=== PATIENT | female | born 2000 | race Caucasian/White ===

== ENCOUNTER 2020-11-16 23:04 | Emergency (ER) | payer BC ==
[2020-11-16 23:22] VITALS: O2SAT 99
--- NOTE | 2020-11-16 23:23 | ERPHSYRPT ---
- History of Present Illness Time Seen by Provider: 11/16/20 23:23 Source: patient, family Exam Limitations: no limitations Physician History: This is a 19-year-old white female who is a patient of Dr. Nuno as well as a patient of and presents with a 2-hour history of sudden onset of shakiness and generalized body aches. Patient is 28 to 29 weeks . this has happened in the past. She did not recall what the diagnosis was at that time. Patient has not had nausea vomiting or diarrhea. She has no chest pain. She is not short of breath. She has had no vaginal bleeding. She has had no vaginal discharge. She has no abdominal pain. Timing/Duration: today Severity: mild Associated Symptoms: No nausea, No vomiting, No abdominal pain, No chest pain, No fever Allergies/Adverse Reactions: Penicillins Allergy (Intermediate, Verified 11/16/20 23:25) Hives Sulfa (Sulfonamide Antibiotics) Allergy (Intermediate, Verified 11/16/20 23:25) Hives Travel Risk - International Travel Have you traveled outside of the country in past 3 weeks: No - Coronavirus Screening Are you exhibiting any of the following symptoms?: No Close contact with a COVID-19 positive Pt in past 14-21 Days: No - Review of Systems Constitutional: No Symptoms Eyes: No Symptoms Ears, Nose, & Throat: No Symptoms Respiratory: No Symptoms Cardiac: No Symptoms Abdominal/Gastrointestinal: No Symptoms Genitourinary Symptoms: No Symptoms Musculoskeletal: No Symptoms Skin: No Symptoms Neurological: No Symptoms Psychological: No Symptoms Endocrine: No Symptoms Hematologic/Lymphatic: No Symptoms Immunological/Allergic: No Symptoms All Other Systems: Reviewed and Negative - Past Medical History Pertinent Past Medical History: Yes - Past Surgical History Past Surgical History: Yes - Nursing Vital Signs Nursing Vital Signs: Initial Vital Signs Temperature 98.7 F 11/16/20 23:19 Pulse Rate 94 H 11/16/20 23:19 Respiratory Rate 18 11/16/20 23:19 Blood Pressure 155/103 11/16/20 23:19 O2 Sat by Pulse Oximetry 99 11/16/20 23:19 Pain Scale Pain Intensity 0 - Physical Exam General Appearance: no apparent distress, alert, anxiety Eye Exam: PERRL/EOMI, eyes nml inspection Ears, Nose, Throat Exam: normal ENT inspection, moist mucous membranes Neck Exam: normal inspection, non-tender, supple, full range of motion Respiratory Exam: normal breath sounds, lungs clear, airway intact, No chest tenderness, No respiratory distress Cardiovascular Exam: regular rate/rhythm, normal heart sounds, normal peripheral pulses Gastrointestinal/Abdomen Exam: soft, normal bowel sounds, No tenderness Pelvic Exam: not done Rectal Exam: not done Back Exam: normal inspection, normal range of motion, No CVA tenderness, No vertebral tenderness Extremity Exam: normal inspection Neurologic Exam: alert, oriented x 3, cooperative, escalator service mechanic II-XII nml as tested, normal mood/affect, nml cerebellar function, nml station & gait, sensation nml Skin Exam: normal color, warm, dry Lymphatic Exam: No adenopathy SpO2 Interpretation: normal SpO2: 99 O2 Delivery: Room Air - Course Nursing assessment & vital signs reviewed: Yes Ordered Tests: Active Orders 24 hr Category Date Time Status IV Insertion STAT Care 11/16/20 23:43 Active AMYLASE Stat Lab 11/16/20 23:43 Completed CBC W DIFF Stat Lab 11/16/20 23:43 Completed CMP Stat Lab 11/16/20 23:43 Completed LIPASE Stat Lab 11/16/20 23:43 Completed Lactic Acid Stat Lab 11/16/20 23:43 Completed UA W/RFX UR CULTURE Stat Lab 11/16/20 23:43 Completed Medication Summary Discontinued Medications Generic Name Dose Route Start Last Admin Trade Name Milesq PRN Reason Stop Dose Admin Cephalexin HCl 500 mg 11/17/20 00:41 Keflex 500 Mg PO 11/17/20 00:42 STAT ONE Sodium Chloride 1,000 mls @ 999 mls/hr 11/16/20 23:43 11/17/20 00:19 Sodium Chloride 0.9% 1000 Ml IV 11/17/20 00:43 999 mls/hr .Q1H1M STA Administration Sodium Chloride Confirm 11/17/20 00:16 Sodium Chloride 0.9% 1000 Ml Administered 11/17/20 00:17 Dose 1,000 mls @ ud .ROUTE .STK-MED ONE Potassium Chloride 10 meq 11/17/20 00:25 Klor Con 10 Meq PO 11/17/20 00:26 STAT ONE Lab/Rad Data: Laboratory Result Diagrams 11/16/20 23:43 11/16/20 23:43 Laboratory Results 11/16/20 11/16/20 11/16/20 Range/Units 23:43 23:43 23:43 WBC 12.0 H (4.0-10.5) K/mm3 RBC 3.70 L (4.1-5.4) M/mm3 Hgb 8.7 L (12.0-16.0) gm/dl Hct 28.4 L (35-47) % MCV 76.8 L (78-100) fl MCH 23.5 L (26-32) pg MCHC 30.6 L (32-36) g/dl RDW 14.4 H (11.5-14.0) % Plt Count 193 (150-450) K/mm3 MPV 12.4 H (7.5-11.0) fl Gran % 75.6 H (36.0-66.0) % Eos # (Auto) 0.11 (0-0.5) Absolute Lymphs (auto) 1.69 (1.0-4.6) Absolute Monos (auto) 1.10 (0.0-1.3) Lymphocytes % 14.1 L (24.0-44.0) % Monocytes % 9.2 (0.0-12.0) % Eosinophils % 0.9 (0.00-5.0) % Basophils % 0.2 (0.0-0.4) % Absolute Granulocytes 9.09 H (1.4-6.9) Basophils # 0.02 (0-0.4) Sodium 137 (137-145) mmol/L Potassium 3.2 L (3.5-5.1) mmol/L Chloride 107 (98-107) mmol/L Carbon Dioxide 20 L (22-30) mmol/L Anion Gap 12.9 (5-15) MEQ/L BUN 2 L (7-17) mg/dL Creatinine 0.41 L (0.52-1.04) mg/dL Estimated GFR > 60.0 ML/MIN Glucose 120 H (74-106) mg/dL Lactic Acid 1.6 (0.4-2.0) Calcium 9.3 (8.4-10.2) mg/dL Total Bilirubin 0.10 L (0.2-1.3) mg/dL AST 20 (14-36) U/L ALT 10 (0-35) U/L Alkaline Phosphatase 55 (38-126) U/L Serum Total Protein 6.9 (6.3-8.2) g/dL Albumin 3.7 (3.5-5.0) g/dL Amylase 130 H (30-110) U/L Lipase 100 (23-300) U/L Urine Color (YELLOW) Urine Appearance (CLEAR) Urine pH (5-6) Ur Specific Garber (1.005-1.025) Urine Protein (Negative) Urine Ketones (NEGATIVE) Urine Blood (0-5) Junior/ul Urine Nitrite (NEGATIVE) Urine Bilirubin (NEGATIVE) Urine Urobilinogen (0-1) mg/dL Ur Leukocyte Esterase (NEGATIVE) Urine WBC (Auto) (0-5) /HPF Urine RBC (Auto) (0-2) /HPF U Epithel Cells (Auto) (FEW) /HPF Urine Bacteria (Auto) (NEGATIVE) /HPF Urine Culture Reflexed (NO) Urine Glucose (NEGATIVE) mg/dL 11/16/20 Range/Units 23:43 WBC (4.0-10.5) K/mm3 RBC (4.1-5.4) M/mm3 Hgb (12.0-16.0) gm/dl Hct (35-47) % MCV (78-100) fl MCH (26-32) pg MCHC (32-36) g/dl RDW (11.5-14.0) % Plt Count (150-450) K/mm3 MPV (7.5-11.0) fl Gran % (36.0-66.0) % Eos # (Auto) (0-0.5) Absolute Lymphs (auto) (1.0-4.6) Absolute Monos (auto) (0.0-1.3) Lymphocytes % (24.0-44.0) % Monocytes % (0.0-12.0) % Eosinophils % (0.00-5.0) % Basophils % (0.0-0.4) % Absolute Granulocytes (1.4-6.9) Basophils # (0-0.4) Sodium (137-145) mmol/L Potassium (3.5-5.1) mmol/L Chloride (98-107) mmol/L Carbon Dioxide (22-30) mmol/L Anion Gap (5-15) MEQ/L BUN (7-17) mg/dL Creatinine (0.52-1.04) mg/dL Estimated GFR ML/MIN Glucose (74-106) mg/dL Lactic Acid (0.4-2.0) Calcium (8.4-10.2) mg/dL Total Bilirubin (0.2-1.3) mg/dL AST (14-36) U/L ALT (0-35) U/L Alkaline Phosphatase (38-126) U/L Serum Total Protein (6.3-8.2) g/dL Albumin (3.5-5.0) g/dL Amylase (30-110) U/L Lipase (23-300) U/L Urine Color STRAW (YELLOW) Urine Appearance CLEAR (CLEAR) Urine pH 8.0 (5-6) Ur Specific Garber 1.003 (1.005-1.025) Urine Protein NEGATIVE (Negative) Urine Ketones NEGATIVE (NEGATIVE) Urine Blood NEGATIVE (0-5) Junior/ul Urine Nitrite NEGATIVE (NEGATIVE) Urine Bilirubin NEGATIVE (NEGATIVE) Urine Urobilinogen NEGATIVE (0-1) mg/dL Ur Leukocyte Esterase TRACE (NEGATIVE) Urine WBC (Auto) 3-5 (0-5) /HPF Urine RBC (Auto) NONE (0-2) /HPF U Epithel Cells (Auto) RARE (FEW) /HPF Urine Bacteria (Auto) FEW (NEGATIVE) /HPF Urine Culture Reflexed NO (NO) Urine Glucose NEGATIVE (NEGATIVE) mg/dL - Progress Progress: improved, re-examined Progress Note: 11/17/20 00:42 Patient and patient's mother stated that this patient has had Keflex in the past without any issues. Counseled pt/family regarding: lab results, diagnosis, need for follow-up - Departure Departure Disposition: Home Clinical Impression: Hypokalemia, Anemia, UTI (urinary tract infection) Condition: Stable Critical Care Time: No Referrals: SITA NUNO MD [Primary Care Provider] - Additional Instructions: Drink plenty of fluids. Take your antibiotic medication as prescribed. Follow- up with Dr. James in his office to obtain further instructions on treatment of your anemia. Prescriptions: Cephalexin Mh 500 mg [Keflex 500 mg] 500 mg PO TID #21 capsule
[2020-11-16] MEDS ORDERED: Sodium Chloride 0.9% 1000 ML 1,000 ML IV STA (23:43)
[2020-11-16 23:57] LABS: Absolute Neutrophil Ct (ANC) 9.09 (1.4-6.9); BASOPHIL % 0.2 % (0.0-0.4); Basophil (Absolute #) 0.02 (0-0.4); Eosinophil % 0.9 % (0.00-5.0); Eosinophil (Absolute #) 0.11 (0-0.5); Hematocrit 28.4 % (35-47); Hemoglobin 8.7 gm/dl (12.0-16.0); Lymphocyte (Absolute #) 1.69 (1.0-4.6); Lymphocytes % 14.1 % (24.0-44.0); Mean Cell Volume 76.8 fl (78-100); Mean Corpuscular Hemoglobin 23.5 pg (26-32); Mean Corpuscular Hgb Concent. 30.6 g/dl (32-36); Mean Platelet Volume 12.4 fl (7.5-11.0); Monocytes % 9.2 % (0.0-12.0); Neutrophil % 75.6 % (36.0-66.0); Platelet Count 193 K/mm3 (150-450); Red Cell Distribution Width 14.4 % (11.5-14.0)
[2020-11-17] LABS: Appearance CLEAR (CLEAR); Bacteria FEW /HPF (NEGATIVE); Bilirubin NEGATIVE (NEGATIVE); Blood NEGATIVE Ery/ul (0-5); Epithelial Cells RARE /HPF (FEW); Glucose NEGATIVE (NEGATIVE); Ketones NEGATIVE (NEGATIVE); Leukocyte Esterase TRACE (NEGATIVE); Nitrite NEGATIVE (NEGATIVE); Protein,Urine Dip NEGATIVE (Negative); Specific Gravity 1.003 (1.005-1.025); Urobilinogen NEGATIVE mg/dL (0-1)
[2020-11-17 00:11] LABS: ALBUMIN 3.7 g/dL (3.5-5.0); ALKALINE PHOSPHATASE 55 U/L (38-126); AMYLASE 130 U/L (30-110); ANION GAP 12.9 MEQ/L (5-15); CHLORIDE 107 mmol/L (98-107); Calcium 9.3 mg/dL (8.4-10.2); Carbon Dioxide 20 mmol/L (22-30); Creatinine 1 0.41 mg/dL (0.52-1.04); EST GLOMERULAR FILTRATION RATE > 60.0 ML/MIN; Glucose 120 mg/dL (74-106); LIPASE 100 U/L (23-300); Potassium 3.2 mmol/L (3.5-5.1); SGOT/AST 20 U/L (14-36); SGPT/ALT 10 U/L (0-35); SODIUM 137 mmol/L (137-145); Total Protein 6.9 g/dL (6.3-8.2)
[2020-11-17 00:12] LABS: BLOOD UREA NITROGEN 2 mg/dL (7-17)
[2020-11-17] MEDS ORDERED: Sodium Chloride 0.9% 1000 ML 1,000 ML ONE (00:16)
[2020-11-17] MEDS ORDERED: Klor Con 10 MEQ PO ONE ×2 (00:25→01:14)
[2020-11-17] MEDS ORDERED: KEFLEX 500 MG PO ONE (00:41)
[2020-11-17] MEDS ORDERED: KEFLEX 500 MG ONE (01:14)
[2020-11-17 01:31] VITALS: BP 140/90; PULSE 95
== END 2020-11-17 01:35 | disposition home or self-care (01) ==
LOC: ED 23:04
DX: O23.43 Unspecified infection of urinary tract in pregnancy, third trimester (principal); O99.013 Anemia complicating pregnancy, third trimester; Z3A.28 28 weeks gestation of pregnancy; E87.6 Hypokalemia
CPT/HCPCS: 36000; 36415; 80053; 81001; 82150; 83605; 83690; 85025; 96360; 99284; A9270-GY

== ENCOUNTER 2020-12-23 14:44 | Observation (INO) | payer BC ==
[2020-12-23 15:09] VITALS: BP 131/71; PULSE 97
[2020-12-23 15:38] LABS: Amphetamine,Urine NEGATIVE (NEGATIVE); Barbiturate,Urine NEGATIVE (NEGATIVE); Benzodiazepine,Urine NEGATIVE (NEGATIVE); Cocaine,Urine NEGATIVE (NEGATIVE); Methadone,Urine NEGATIVE (NEGATIVE); Opiate,Urine NEGATIVE (NEGATIVE); PCP,Urine NEGATIVE (NEGATIVE); THC,Urine NEGATIVE (NEGATIVE)
[2020-12-23 15:55] LABS: Appearance CLOUDY (CLEAR); Bacteria MANY /HPF (NEGATIVE); Bilirubin NEGATIVE (NEGATIVE); Blood NEGATIVE Ery/ul (0-5); Epithelial Cells MODERATE /HPF (FEW); Glucose NEGATIVE (NEGATIVE); Ketones TRACE (NEGATIVE); Leukocyte Esterase LARGE (NEGATIVE); Mucus SLIGHT /HPF (NEGATIVE); Nitrite NEGATIVE (NEGATIVE); Protein,Urine Dip 30 (Negative); Urobilinogen NEGATIVE mg/dL (0-1); WBC 26-50 /HPF (0-5)
== END 2020-12-23 16:50 | disposition home or self-care (01) ==
LOC: OB 14:44
PROVIDERS: ADMIT Obstetrics & Gynecology; ATTEND Obstetrics & Gynecology
DX: Z34.83 Encounter for supervision of other normal pregnancy, third trimester (principal); Z3A.34 34 weeks gestation of pregnancy
CPT/HCPCS: 80307; 81001; 84112; 87086; G0378

== ENCOUNTER 2021-01-02 08:42 | Observation (INO) | payer BC ==
[2021-01-02 09:57] VITALS: BP 122/71; PULSE 88
== END 2021-01-02 10:50 | disposition home or self-care (01) ==
LOC: WHC 08:42 → OB 09:19
PROVIDERS: ADMIT Obstetrics & Gynecology; ATTEND Obstetrics & Gynecology
DX: O36.5930 Maternal care for other known or suspected poor fetal growth, third trimester, not applicable or unspecified (principal); O23.43 Unspecified infection of urinary tract in pregnancy, third trimester; Z3A.35 35 weeks gestation of pregnancy
CPT/HCPCS: 59025; 59426; 87086; G0378

== ENCOUNTER 2021-01-07 09:47 | Observation (INO) | payer BC ==
[2021-01-07 10:30] VITALS: BP 131/82; PULSE 114
--- NOTE | 2021-01-07 10:34 | XRAY ---
Indication: growth. 2-dimensional OB ultrasound performed. Comparison: December 05, 2020. Again there is a single viable intrauterine in cephalic presentation. heart rate 161 BPM. anatomy previously documented. Visualized stomach and bladder are unremarkable. Again anterior placenta without abruption/previa. BPD measures 9.09 cm corresponding to 36 weeks 6 days. HC measures 31.82 cm corresponding to 35 weeks 6 days. AC measures 30.38 cm corresponding to 34 weeks 2 days. FL measures 7.02 cm corresponding to 36 weeks 0 day. Estimated weight 5 lbs. 12 oz., +/-14 ounces. Approximately 22 percentile. CELIO is 13.8 cm. Impression: Again single viable intrauterine with mean gestational age 35 weeks 5 days. Normal progression of . No new/acute findings.
== END 2021-01-07 10:50 | disposition home or self-care (01) ==
LOC: RAD 09:47 → OB 10:16 → UNDOADMOB 10:16 → UNDODISOB 10:50
PROVIDERS: ADMIT Obstetrics & Gynecology; ATTEND Obstetrics & Gynecology
DX: O36.5930 Maternal care for other known or suspected poor fetal growth, third trimester, not applicable or unspecified (principal); Z3A.36 36 weeks gestation of pregnancy
CPT/HCPCS: 59025; 76816; G0378

== ENCOUNTER 2021-01-17 08:25 | Observation (INO) | payer BC ==
[2021-01-17 08:51] VITALS: BP 137/87; PULSE 100; O2SAT 100
== END 2021-01-17 09:25 | disposition home or self-care (01) ==
LOC: OB 08:25
PROVIDERS: ADMIT Obstetrics & Gynecology; ATTEND Obstetrics & Gynecology
DX: Z34.83 Encounter for supervision of other normal pregnancy, third trimester (principal); Z3A.37 37 weeks gestation of pregnancy
CPT/HCPCS: 59025; G0378

== ENCOUNTER 2021-01-22 04:55 | Inpatient (IN) | payer BC ==
[2021-01-22] MEDS ORDERED: Lactated Ringers 1,000 ML IV ONE ×2 (06:00→06:15)
[2021-01-22] MEDS ORDERED: TYLENOL EXTRA STRENGTH 500 MG PO PRN (06:00)
[2021-01-22] MEDS ORDERED: Zofran 4 MG/2 ML VIAL IV PRN (06:00)
[2021-01-22 06:05] LABS: Hematocrit 35.4 % (35-47); Hemoglobin 11.4 gm/dl (12.0-16.0); Mean Cell Volume 83.1 fl (78-100); Mean Corpuscular Hemoglobin 26.8 pg (26-32); Mean Corpuscular Hgb Concent. 32.2 g/dl (32-36); Mean Platelet Volume 12.7 fl (7.5-11.0); Platelet Count 198 K/mm3 (150-450); Red Blood Count 4.26 M/mm3 (4.1-5.4); Red Cell Distribution Width 18.2 % (11.5-14.0); White Blood Count 11.9 K/mm3 (4.0-10.5)
[2021-01-22] MEDS ORDERED: OB EPIDURAL NAROPIN/SUFENTANIL IN NACL EPIDURAL PRN (06:11)
[2021-01-22 06:12] LABS: Appearance SLIGHTLY CLOUDY (CLEAR); Bacteria MANY /HPF (NEGATIVE); Bilirubin NEGATIVE (NEGATIVE); Blood LARGE Ery/ul (0-5); Epithelial Cells MODERATE /HPF (FEW); Glucose NEGATIVE (NEGATIVE); Ketones NEGATIVE (NEGATIVE); Leukocyte Esterase LARGE (NEGATIVE); Mucus SLIGHT /HPF (NEGATIVE); Nitrite NEGATIVE (NEGATIVE); Protein,Urine Dip NEGATIVE (Negative); Urobilinogen NEGATIVE mg/dL (0-1)
[2021-01-22] MEDS ORDERED: Ephedrine Sulfate 50 MG/ML IV PRN (06:15)
[2021-01-22] MEDS: Lactated Ringers 1,000 ML IV SCH ×2 (06:16→22:23)
[2021-01-22] MEDS ORDERED: BRETHINE 1 MG/ML SQ PRN (06:30)
[2021-01-22] MEDS ORDERED: PITOCIN 30 UNITS/ LR 500 ML 30 UNITS/500 ML IV.SOLN. IV SCH ×2 (06:30)
[2021-01-22] MEDS: CLINDAMYCIN-D5W 900 MG/50 ML*** 900 MG/50 ML BAG IV SCH ×2 (06:33→21:37)
[2021-01-22 08:10] LABS: ANISOCYTOSIS 1+; Lymphocytes 26 % (24-44); Monocyte 5 % (0.0-12.0); Neutrophils 69 % (36.0-66.0); Platelet Estimate NORMAL (NORMAL); Total Cells Counted 100
[2021-01-22 08:57] LABS: Amphetamine,Urine NEGATIVE (NEGATIVE); Barbiturate,Urine NEGATIVE (NEGATIVE); Benzodiazepine,Urine NEGATIVE (NEGATIVE); Cocaine,Urine NEGATIVE (NEGATIVE); Methadone,Urine NEGATIVE (NEGATIVE); Opiate,Urine NEGATIVE (NEGATIVE); PCP,Urine NEGATIVE (NEGATIVE); THC,Urine NEGATIVE (NEGATIVE)
[2021-01-22] MEDS ORDERED: TUCKS TP PRN (14:37)
[2021-01-22] MEDS ORDERED: LANSINOH 40 GM TOP PRN (14:37)
[2021-01-22] MEDS ORDERED: Dermoplast Spray TP PRN (14:37)
[2021-01-22] MEDS: MOTRIN 400 MG PO PRN (15:04)
[2021-01-22] MEDS: Colace 100 MG PO SCH (22:27)
[2021-01-23] MEDS: Lactated Ringers 1,000 ML IV SCH (01:17)
[2021-01-23 06:31] LABS: Absolute Neutrophil Ct (ANC) 10.27 (1.4-6.9); BASOPHIL % 0.1 % (0.0-0.4); Basophil (Absolute #) 0.02 (0-0.4); Eosinophil % 1.6 % (0.00-5.0); Eosinophil (Absolute #) 0.23 (0-0.5); Hematocrit 32.6 % (35-47); Hemoglobin 10.2 gm/dl (12.0-16.0); Lymphocyte (Absolute #) 2.66 (1.0-4.6); Lymphocytes % 18.8 % (24.0-44.0); Mean Corpuscular Hemoglobin 26.3 pg (26-32); Mean Corpuscular Hgb Concent. 31.3 g/dl (32-36); Mean Platelet Volume 12.4 fl (7.5-11.0); Monocyte (Absolute #) 0.96 (0.0-1.3); Monocytes % 6.8 % (0.0-12.0); Neutrophil % 72.7 % (36.0-66.0); Platelet Count 166 K/mm3 (150-450); Red Blood Count 3.88 M/mm3 (4.1-5.4); White Blood Count 14.1 K/mm3 (4.0-10.5)
--- NOTE | 2021-01-23 07:38 | PCM.NOTE ---
Date and Time: 01/23/21 0737 Subjective Assessment: PPD 1 PT RESTING IN BED AND DOING WELL VSS AFEBRILE ABD; SOFT UTERUS; FIRM LOCHIA; MILD A/P SP VACUUM ASSISTED VAGINAL DELIVERY DC HOME TOMORROW FU OFFICE 3 WKS OBJECTIVE DATA Vital Signs: Vital Signs - 24 hr Temp Pulse Resp BP BP Pulse Ox 01/23/21 02:00 98.6 F 81 16 121/79 98 01/22/21 16:45 98.2 F 79 20 134/74 98 01/22/21 16:00 98.2 F 82 18 131/71 98 01/22/21 15:30 98.2 F 96 H 18 140/75 01/22/21 14:30 98.1 F 80 20 160/86 01/22/21 14:00 98.1 F 77 20 135/79 01/22/21 13:30 98.0 F 83 20 136/79 01/22/21 13:15 98.0 F 83 20 145/87 01/22/21 13:00 98.0 F 95 H 20 146/88 01/22/21 12:45 98.0 F 80 20 152/80 99 01/22/21 12:21 98.0 F 83 20 01/22/21 12:15 98.0 F 99 H 20 146/84 99 01/22/21 12:05 100 01/22/21 12:00 97.6 F 87 18 149/86 100 01/22/21 11:45 97.6 F 74 18 145/75 98 01/22/21 11:30 97.6 F 74 18 145/75 98 01/22/21 11:15 97.6 F 85 18 156/78 98 01/22/21 11:00 98.8 F 85 18 142/83 98 01/22/21 10:45 98.8 F 85 18 144/85 98 01/22/21 10:30 98.8 F 85 18 144/85 98 01/22/21 10:15 98.8 F 81 18 142/85 98 01/22/21 10:00 98.8 F 91 H 18 136/78 98 01/22/21 09:45 98.8 F 106 H 18 147/99 98 01/22/21 09:30 98.8 F 93 H 18 138/82 98 01/22/21 09:15 98.8 F 96 H 18 138/85 98 01/22/21 09:00 98.2 F 102 H 18 138/85 98 01/22/21 08:45 98.2 F 94 H 18 135/87 98 01/22/21 08:30 98.2 F 88 18 137/89 98 01/22/21 08:15 98.2 F 84 18 148/89 98 01/22/21 07:45 98.2 F 90 18 138/85 99 Pain Assessment - Last Documented Pain Intensity [Lower] 2 Pain Intensity 1 Pain Scale Used 0-10 Pain Scale Intake and Output: Intake & Output 01/20/21 01/21/21 01/22/21 01/23/21 11:59 11:59 11:59 11:59 Intake Total 4600 3250 Output Total 1800 1500 Balance 2800 1750 Weight 170 kg Lab Results: Lab Results-Last 24 Hours 01/22/21 01/22/21 01/23/21 Range/Units 05:50 05:50 05:30 WBC 14.1 H (4.0-10.5) K/mm3 RBC 3.88 L (4.1-5.4) M/mm3 Hgb 10.2 L (12.0-16.0) gm/dl Hct 32.6 L (35-47) % MCV 84.0 (78-100) fl MCH 26.3 (26-32) pg MCHC 31.3 L (32-36) g/dl RDW 18.0 H (11.5-14.0) % Plt Count 166 (150-450) K/mm3 MPV 12.4 H (7.5-11.0) fl Gran % 72.7 H (36.0-66.0) % Eos # (Auto) 0.23 (0-0.5) Absolute Lymphs (auto) 2.66 (1.0-4.6) Absolute Monos (auto) 0.96 (0.0-1.3) Lymphocytes % 18.8 L (24.0-44.0) % Monocytes % 6.8 (0.0-12.0) % Eosinophils % 1.6 (0.00-5.0) % Basophils % 0.1 (0.0-0.4) % Absolute Granulocytes 10.27 H (1.4-6.9) Segmented Neutrophils 69 H (36.0-66.0) % Lymphocytes (Manual) 26 (24-44) % Monocytes (Manual) 5 (0.0-12.0) % Basophils # 0.02 (0-0.4) Platelet Estimate NORMAL (NORMAL) RBC Morphology ABNORMAL Anisocytosis 1+ Urine Opiates Level NEGATIVE (NEGATIVE) Ur Methadone NEGATIVE (NEGATIVE) Urine Barbiturates NEGATIVE (NEGATIVE) Ur Phencyclidine (PCP) NEGATIVE (NEGATIVE) Urine Amphetamine NEGATIVE (NEGATIVE) U Benzodiazepine Level NEGATIVE (NEGATIVE) Urine Cocaine NEGATIVE (NEGATIVE) Urine Marijuana (THC) NEGATIVE (NEGATIVE) Multi-Disciplinary Progress Notes: Multi-Disciplinary Progress Notes 01/22/21 12:53 Respiratory Note by Danna Freeman 01/22 called to delivery mother was having some difficulties pushing baby out. Once baby arrived placed on mom chest for a minute baby crying then placed in warmer. HR was 130 to 140 RR with crying 62. Baby dried and suctioned. Difficult to get sats due to very cheesy. Finally achieved sats of 92% but then dropped to 88 and grunting gave peep of 5 for 2 minutes and sats increased to 95% and HR 185 with RR 72. Removed and sats still 94%. Will continue to monitor. gabe Initialized on 01/22/21 12:53 - END OF NOTE Assessment/Plan (1) Vaginal delivery Current Visit: Yes Status: Acute Code(s): O80 - ENCOUNTER FOR FULL-TERM UNCOMPLICATED DELIVERY
[2021-01-23 08:09] LABS: Slide Review 1 YES
[2021-01-23] MEDS: Colace 100 MG PO SCH ×2 (09:45→21:55)
[2021-01-23] MEDS ORDERED: FERREX 150 PO SCH (10:00)
[2021-01-23] MEDS: MOTRIN 400 MG PO PRN ×2 (13:13→21:54)
--- NOTE | 2021-01-23 16:40 | PCM.DS ---
Discharge Summary Date of Admission: 01/22/21 06:30 Admitting Physician: NUNO BURNETTE DO Consults: Consults on Case 01/22/21 06:12 Notify Anesthesia Provider PRN 01/22/21 14:38 Notify Physician ROUTINE 01/23/21 10:18 Navigation ONCE Primary Care Provider: NUNO BURNETTE DO Allergies Allergies Penicillins Allergy (Intermediate, Verified 01/22/21 06:42) Hives Sulfa (Sulfonamide Antibiotics) Allergy (Intermediate, Verified 01/22/21 06:42) [facility] Summary - Hospital Course Hospital Course: pt admitted on jan 22 for augmentation secondary to having advanced cervical dilitation to 4 cm upon admission and also iugr with sga baby. pt delivered live baby boy without complication on jan 22 and during period did well with a stable hgb level. pt at this time stable for discharge. all questions answered to her satisfaction and was advised to fu in 3 wks for care. - Vitals & Intake/Output Vital Signs: Vital Signs Temperature 98.5 F 01/23/21 10:00 Pulse Rate 73 01/23/21 10:00 Respiratory Rate 18 01/23/21 10:00 Blood Pressure 131/82 01/23/21 10:00 O2 Sat by Pulse Oximetry 98 01/23/21 02:00 Intake & Output: Intake & Output 01/21/21 01/22/21 01/23/21 01/24/21 11:59 11:59 11:59 11:59 Intake Total 4600 3250 Output Total 1800 1500 Balance 2800 1750 Weight 170 kg - Lab Result Diagrams: 01/23/21 05:30 Lab Results-Last 24 Hrs: Lab Results-Last 24 Hours 01/23/21 Range/Units 05:30 WBC 14.1 H (4.0-10.5) K/mm3 RBC 3.88 L (4.1-5.4) M/mm3 Hgb 10.2 L (12.0-16.0) gm/dl Hct 32.6 L (35-47) % MCV 84.0 (78-100) fl MCH 26.3 (26-32) pg MCHC 31.3 L (32-36) g/dl RDW 18.0 H (11.5-14.0) % Plt Count 166 (150-450) K/mm3 MPV 12.4 H (7.5-11.0) fl Gran % 72.7 H (36.0-66.0) % Eos # (Auto) 0.23 (0-0.5) Absolute Lymphs (auto) 2.66 (1.0-4.6) Absolute Monos (auto) 0.96 (0.0-1.3) Lymphocytes % 18.8 L (24.0-44.0) % Monocytes % 6.8 (0.0-12.0) % Eosinophils % 1.6 (0.00-5.0) % Basophils % 0.1 (0.0-0.4) % Absolute Granulocytes 10.27 H (1.4-6.9) Basophils # 0.02 (0-0.4) Slides for Path Review YES Micro Results-Entire Visit: Microbiology 01/22/21 05:50 Urine Culture - Preliminary Clean Catch Midstream GRAM POSITIVE ID AND SENSITIVITY PENDING - Procedures and Test Procedures and Tests throughout Hospitalization: Therapy Orders & Screens 01/22/21 12:57 Standby ROUTINE Comment: Final Diagnosis/Problem List - Final Discharge Diagnosis/Problem (1) Vaginal delivery Current Visit: Yes Status: Acute Code(s): O80 - ENCOUNTER FOR FULL-TERM UNCOMPLICATED DELIVERY - Discharge Disposition: Home, Self-Care Condition: Stable Prescriptions: No Action PANTOPRAZOLE 40 mg Tablet [Protonix 40MG Tablet] 40 mg PO DAILY Follow up with: NUNO BURNETTE DO [Primary Care Provider] - 3 weeks (should fu in office in 3 wks)
[2021-01-24] MEDS: MOTRIN 400 MG PO PRN (03:18)
[2021-01-24 08:46] VITALS: BP 124/87; PULSE 67; O2SAT 99
== END 2021-01-24 09:42 | disposition home or self-care (01) | DRG 807 ==
LOC: OB 04:55 → OBSVTOIN 06:30 → MED SURG 23:04
PROVIDERS: ADMIT Obstetrics & Gynecology; ATTEND Obstetrics & Gynecology
PROC: 10D07Z6 Extraction of Products of Conception, Vacuum, Via Natural or Artificial Opening (ICD-10-PCS; principal; 2021-01-22)
PROC: 0HQ9XZZ Repair Perineum Skin, External Approach (ICD-10-PCS; 2021-01-22)
DX: O76 Abnormality in fetal heart rate and rhythm complicating labor and delivery (principal); Z37.0 Single live birth; O70.0 First degree perineal laceration during delivery; O69.0XX0 Labor and delivery complicated by prolapse of cord, not applicable or unspecified; Z3A.38 38 weeks gestation of pregnancy
CPT/HCPCS: 36415; 59400; 80307; 81001; 85025; 87086; 94799; G0378; J2405; J2590; J2795; A9270-GY

== ENCOUNTER 2021-05-03 23:54 | Emergency (ER) | payer BC ==
--- NOTE | 2021-05-04 00:46 | ERPHSYRPT ---
- History of Present Illness Time Seen by Provider: 05/04/21 00:42 Source: patient Exam Limitations: no limitations Patient Subjective Stated Complaint: pt states she has had hives today that got much worse tonight. hives to bilat arms and legs. pt state she has been taking naproxen for hip pain for last 3 days. no other known exposure to new med, food, soap, or detergent. Triage Nursing Assessment: pt alert and oriented, answers questions approp. pt ambulatory with steady gait noted. skin warm and dry. hives noted to bilat arms and legs. pt reports itching and burning. no diffuclty swallowing or shortness of breath. bilat lungs cta. Physician History: Pt broke out in blotchy rask on extremities without blistering, after starting naprosyn a few days ago . but slight peeling. no SOBreath or trouble swallowing She is breath feeding and is advised to use formula for while on steroids, and to pump breats and discard milk, but that this may also affect milk since it it endocrine affector. no other known allergen and no fever or other symptoms; chest clear , pharynx clear without swelling. Timing/Duration: day(s) Quality: itchy Severity: moderate Location: extremities Possible Causes: medications Modifying Factors: Improves With: calamine lotion Associated Symptoms: rash, No difficulty breathing, No edema, No fever, No headache, No nasal congestion, No sore throat Allergies/Adverse Reactions: Penicillins Allergy (Intermediate, Verified 05/04/21 00:18) Hives Sulfa (Sulfonamide Antibiotics) Allergy (Intermediate, Verified 05/04/21 00:18) Hives Home Medications: Naproxen 500 mg [Naprosyn 500 MG] 500 mg PO DAILY 05/04/21 [History] Hx Tetanus, Diphtheria Vaccination/Date Given: Yes Hx Influenza Vaccination/Date Given: No Hx Pneumococcal Vaccination/Date Given: No Immunizations Up to Date: Yes Travel Risk - International Travel Have you traveled outside of the country in past 3 weeks: No - Coronavirus Screening Close contact with a COVID-19 positive Pt in past 14-21 Days: No - Vaccine Status Have you recieved a Covid-19 vaccination: No - Review of Systems Constitutional: No Fever, No Chills Eyes: No Symptoms Ears, Nose, & Throat: No Symptoms Respiratory: No Cough, No Dyspnea Cardiac: No Chest Pain, No Edema, No Syncope Abdominal/Gastrointestinal: No Abdominal Pain, No Nausea, No Vomiting, No Diarrhea Genitourinary Symptoms: No Dysuria Musculoskeletal: No Back Pain, No Neck Pain Skin: Pruritis, Rash Neurological: No Dizziness, No Focal Weakness, No Sensory Changes Psychological: No Symptoms Endocrine: No Symptoms Hematologic/Lymphatic: No Symptoms Immunological/Allergic: Eczema All Other Systems: Reviewed and Negative - Past Medical History Pertinent Past Medical History: Yes Neurological History: No Pertinent History ENT History: No Pertinent History Cardiac History: No Pertinent History Respiratory History: No Pertinent History Endocrine Medical History: Hyperthyroidism Musculoskeletal History: No Pertinent History GI Medical History: No Pertinent History History: No Pertinent History Psycho-Social History: No Pertinent History Female Reproductive Disorders: No Pertinent History Other Medical History: pt report being 30 weeks gravid - Past Surgical History Past Surgical History: No Neuro Surgical History: No Pertinent History Cardiac: No Pertinent History Respiratory: No Pertinent History Gastrointestinal: No Pertinent History Genitourinary: No Pertinent History Musculoskeletal: No Pertinent History Female Surgical History: No Pertinent History - Social History Smoking Status: Never smoker Exposure to second hand smoke: No Drug Use: none Patient Lives Alone: No - Female History Hx Last Menstrual Period: 2 mos Hx Now: No - Nursing Vital Signs Nursing Vital Signs: Initial Vital Signs Temperature 98.5 F 05/04/21 00:02 Pulse Rate 84 05/04/21 00:02 Respiratory Rate 16 05/04/21 00:02 Blood Pressure 137/86 05/04/21 00:02 O2 Sat by Pulse Oximetry 98 05/04/21 00:02 Pain Scale Pain Intensity 0 - Physical Exam General Appearance: no apparent distress, alert Eye Exam: PERRL/EOMI, eyes nml inspection Ears, Nose, Throat Exam: normal ENT inspection, pharynx normal, moist mucous membranes Neck Exam: normal inspection, non-tender, supple, full range of motion Respiratory Exam: normal breath sounds, lungs clear, airway intact, No respiratory distress, No crackles/rales, No rhonchi, No wheezing, No stridor Cardiovascular Exam: regular rate/rhythm, normal heart sounds Gastrointestinal/Abdomen Exam: soft, mass, No tenderness Back Exam: normal inspection, normal range of motion, No CVA tenderness, No vertebral tenderness Extremity Exam: normal inspection, normal range of motion Neurologic Exam: alert, oriented x 3, cooperative, normal mood/affect, sensation nml, No motor deficits Skin Exam: normal color, warm, dry, rash SpO2 Interpretation: normal SpO2: 98 O2 Delivery: Room Air - Course Nursing assessment & vital signs reviewed: Yes - Progress Progress: improved, re-examined Counseled pt/family regarding: diagnosis, need for follow-up - Departure Departure Disposition: Home Clinical Impression: Allergic drug rash Condition: Good Critical Care Time: No Referrals: RUBINA FIELDS MD [Primary Care Provider] - Follow up/PCP as directed Instructions: Skin Rash (DC), Drug Allergy Additional Instructions: follow-up with your this week, to consider further workup for the definitive cause of your rash, although this may be the new medicine - stop the new medicine ( naprosyn) meantime. return meantime if not improving , short of breath , trouble swallowing or other concerns. stop breast feeding during use of the medrol dospak but continue pumping and discarding milk. use formula for your infant feedings. follow-up blood pressure with your
[2021-05-04] MEDS ORDERED: Medrol Dosepack PO SCH (01:15)
[2021-05-04 01:20] VITALS: BP 134/72; PULSE 89; O2SAT 100
== END 2021-05-04 01:15 | disposition home or self-care (01) ==
LOC: ED 23:54
DX: L27.0 Generalized skin eruption due to drugs and medicaments taken internally (principal); T39.315A Adverse effect of propionic acid derivatives, initial encounter
CPT/HCPCS: 99283